=== PATIENT | male | born 1955 | race Caucasian/White ===

== ENCOUNTER 2019-08-08 15:00 | Outpatient (RCR) | payer OTHER | END 2019-09-26 | disposition home or self-care (01) | LOC: CARDREHAB | DX: I25.10 Atherosclerotic heart disease of native coronary artery without angina pectoris (principal); I10 Essential (primary) hypertension; I42.2 Other hypertrophic cardiomyopathy; Z95.5 Presence of coronary angioplasty implant and graft ==